=== PATIENT | female | born 1960 | race Caucasian/White ===

== ENCOUNTER 2021-04-20 04:28 | Day surgery (SDC) | payer OTHER ==
[2021-04-19 14:32] VITALS: BMI 30.8
[2021-04-20] MEDS ORDERED: LIDOCAINE HCL/PF 2% SDV 5ML VIAL ONE (07:24)
[2021-04-20] MEDS ORDERED: PROPOFOL 20 ML ONE ×2 (07:27)
[2021-04-20] MEDS ORDERED: SUCCINYLCHOLINE CHLORIDE 200 MG/10 ML SYRINGE ONE (07:27)
[2021-04-20] MEDS ORDERED: KETAMINE HCL 200 MG/20 ML VIAL ONE (07:28)
[2021-04-20] MEDS ORDERED: MIDAZOLAM HCL 2 MG/2 ML SINGLE DOSE VIAL ONE (07:28)
[2021-04-20] MEDS ORDERED: DEXMEDETOMIDINE HCL 200 MCG/2 ML IVPB ONE (07:31)
[2021-04-20] MEDS ORDERED: ACETAMINOPHEN INJECTION 100 ML IVPB ONE (07:32)
[2021-04-20] MEDS ORDERED: LIDOCAINE HCL 1%, 10 MG/ML (20ML VIAL) ONE (07:52)
[2021-04-20] MEDS ORDERED: BUPIVACAINE HCL/PF 0.5% (5MG/ML) 10 ML VIAL ONE (07:52)
[2021-04-20] MEDS ORDERED: LIDOCAINE HCL 1%, 10 MG/ML (20ML VIAL) NR ONE ×2 (08:27)
[2021-04-20] MEDS ORDERED: BUPIVACAINE HCL/PF 0.5% (5 MG/ML) 30 ML VIAL IJ ONE (08:27)
[2021-04-20] MEDS ORDERED: ceFAZolin SODIUM 1 GM VIAL IVPB ONE (08:30)
[2021-04-20] MEDS ORDERED: ceFAZolin SODIUM 1 GM VIAL ONE ×2 (08:31→08:45)
[2021-04-20] MEDS ORDERED: KETOROLAC TROMETHAMINE 30 MG/1 ML VIAL ONE (08:45)
[2021-04-20 14:55] VITALS: BP 116/64; PULSE 50; TEMP 97.8
== END 2021-04-20 14:45 | disposition home or self-care (01) ==
LOC: JASU-SURG 04:28
PROVIDERS: ATTEND Podiatrist Foot & Ankle Surgery
PROC: 0SGM0JZ Fusion of Right Metatarsal-Phalangeal Joint with Synthetic Substitute, Open Approach (ICD-10-PCS; principal; 2021-04-20 08:00)
DX: M20.21 Hallux rigidus, right foot (principal); E11.9 Type 2 diabetes mellitus without complications; I10 Essential (primary) hypertension
CPT/HCPCS: 28750; C1713; 76000-TC-FY; 82962; 94760; 97116-GP; J0131